=== PATIENT | male | born 1985 | race Caucasian/White ===

== ENCOUNTER 2016-06-23 09:50 | Emergency (ER) ==
[2016-06-23] MEDS ORDERED: Ibuprofen 800 MG TAB ONE (10:07)
[2016-06-23] MEDS ORDERED: AMOXicillin 250 MG CAP ONE (10:07)
== END 2016-06-23 10:12 ==
LOC: NAV ERS 09:50
DX: K04.7 Periapical abscess without sinus (principal); F31.9 Bipolar disorder, unspecified
CPT/HCPCS: 99282